=== PATIENT | female | born 1995 | race African-American/Black ===

== ENCOUNTER 2016-05-03 03:07 | Emergency (ER) | payer SELFPAY ==
[~2016-05-03] VITALS: Ht 162.6 cm; Wt 78.0 kg
[2016-05-03 03:15] VITALS: Ht 162.6 cm; Wt 78.0 kg
[2016-05-03] MEDS ORDERED: KETOROLAC TROMETHAMINE 30 MG/ML VIAL IV STA (03:57)
[2016-05-03] MEDS ORDERED: SODIUM CHLORIDE 0.9% 1000ML 1,000 ML IV STA (03:57)
[2016-05-03 04:25] VITALS: O2SAT 96
[2016-05-03 04:37] LABS: BASO % 0.1 %; BASO ABS # 0.01 K/uL (0-0.2); COMPLETE YES; IG% 0.3 %; LYMPH ABS # 1.25 K/uL (1.2-3.4); MEAN CELL VOLUME 78.8 fL (80-100); MEAN CORPUSCULAR HEMOGLOBIN 28.7 pg (25-34); MEAN CORPUSCULAR HGB CONC 36.4 g/dl (32-36); MEAN PLATELET VOLUME 9.7 fL (7.4-10.4); MONO % 9.4 %; NEUT % 71.2 %; PLATELET COUNT 274 K/uL (130-400); RED BLOOD COUNT 4.57 M/uL (4.2-5.4); WHITE BLOOD COUNT 7.37 K/uL (4.8-10.8)
[2016-05-03] MEDS ORDERED: PHEN-905 PO (04:41)
[2016-05-03] MEDS ORDERED: [UNRECOGNIZED DRUG - CODE] PO (04:41)
[2016-05-03 04:42] LABS: MANUAL MICROSCOPIC REQUIRED? NO; REVIEW REQ? NO; URINE APPEARANCE CLOUDY (CLEAR); URINE BILIRUBIN NEG (NEG); URINE COLOR DK YELLOW; URINE EPITHELIAL CELL AUTO >30 /lpf (0-5); URINE NITRITE NEG (NEG); URINE SPECIFIC GRAVITY 1.025 (1.000-1.030); UROBILINOGEN NEG (NEG); ZZUR CULT IF INDIC CLEAN CATCH YES
[2016-05-03 04:59] LABS: BUN/CREATININE RATIO 7.8 (10-20); CALCIUM 8.7 mg/dl (8.5-10.1); CREATININE 0.88 mg/dl (0.60-1.20)
[2016-05-03] MEDS ORDERED: ACETAMINOPHEN 325 MG TAB PO STA (05:59)
[2016-05-03 06:18] LABS: INFLUENZA A PCR Neg for Influ A (NEG); INFLUENZA B PCR Neg for Influ B (NEG)
--- NOTE | 2016-05-03 06:38 | DIAGNOSTIC IMAGING REPORT ---
CHEST ONE VIEW PORTABLE CLINICAL HISTORY: fever, cough COMPARISON STUDY: No previous studies for comparison. FINDINGS: The cardiac and mediastinal contours are normal. There is no evidence of focal pulmonary consolidation. There is no evidence of failure. No pleural effusions are visualized.[ IMPRESSION: No active disease in the chest. Electronically signed by: Gonzalo Johnston M.D. 05/03/2016 6:36 AM Dictated Date/Time: 05/03/2016 6:36 AM
[2016-05-03 06:58] VITALS: TEMP 37.3
--- NOTE | 2016-05-03 07:09 | EMERGENCY ROOM VISIT NOTE ---
History Report prepared by Kike: Qamar Dudley Under the Supervision of: Dr. Ivis Ibrahim M.D. First contact with patient: 03:49 Chief Complaint: FLU LIKE SX Stated Complaint: FEVER,FLU LIKE SYMPTOMS,SORE THROAT History of Present Illness The patient is a 21 year old female who presents to the Emergency Room with complaints of a persistent illness beginning yesterday. Her symptoms include a sore throat, cough, fevers and chills. She has taken NyQuil, DayQuil and Ibuprofen for her symptoms, but has seen minimal relief. The patient states that the medications improved her symptoms for about an hour before they returned. She did not have flu-shot this year. She has a history of rheumatoid arthritis and asthma. The patient denies any chance of . Source of History: patient Onset: Yesterday Quality: other (illness) Timing: other (persistent) Modifying Factors (Relieving): ibuprofen, other (NyQuil and DayQuil) Associated Symptoms: + chills, + cough, + fevers, + sorethroat Review of Systems See HPI for pertinent positives & negatives. A total of 10 systems reviewed and were otherwise negative. Past Medical & Surgical Medical Problems: (1) Asthma (2) Juvenile rheumatoid arthritis Family History No pertinent family history stated. Social History Smoking Status: Current Every Day Smoker Marital Status: single Housing Status: lives with family Occupation Status: [employer] student Current/Historical Medications Scheduled PRN Dextromethorphan-Phenylephrine (Day Time Multi-Symptom Co 10-5-325 mg/15Ml), 1 DOSE PO DIRECTED PRN for COLD SYMPTOMS Sibdydnovdztl-Zdtkytaoop-Zgsan (Nyquil Severe Cold/Flu 5-6.25-10-325 mg/15Ml), 1 DOSE PO DIRECTED PRN for COLD SYMPTOMS Allergies Coded Allergies: Pineapple (Verified Allergy, Severe, "SWELLING EVERYWHERE"-THROAT, FACE, ) Physical Exam Vital Signs Date Time Temp Pulse Resp B/P Pulse Ox O2 Delivery O2 Flow Rate FiO2 05/03/16 07:41 94 18 108/62 98 05/03/16 06:58 37.3 92 18 96 Room Air 05/03/16 06:10 103 18 107/75 100 Room Air 05/03/16 05:30 80 18 96 Room Air 05/03/16 05:04 38.0 05/03/16 04:31 95 05/03/16 04:25 96 Room Air 05/03/16 04:25 93 20 96 Room Air 05/03/16 04:24 91 16 115/82 100 Room Air 05/03/16 03:15 38.9 95 18 120/81 96 Room Air Physical Exam Vital signs reviewed. General: Well-appearing female, in no significant distress. Noted to be febrile. No meningeal signs HEENT: No scleral icterus, PERRLA, neck supple. Atraumatic. Cardiovascular: Regular rate and rhythm, no extra sounds. Pulmonary: Clear to auscultation bilaterally, normal work of breathing. Abdomen: Soft, nontender, nondistended, positive bowel sounds. Musculoskeletal: Atraumatic, no peripheral edema. Neurologic: Patient awake alert and oriented x 3, full strength in all 4 extremities. Cranial nerves 2 through 12 grossly intact. Skin: Warm, dry, no rash Medical Decision & Procedures ER Provider Diagnostic Interpretation: One View Chest X-ray interpreted by me: No focal lung consolidation. No failure. Laboratory Results 05/03/16 04:20 Red Blood Count 4.57, Mean Corpuscular Volume 78.8, Mean Corpuscular Hemoglobin 28.7, Mean Corpuscular Hemoglobin Concent 36.4, Mean Platelet Volume 9.7, Neutrophils (%) (Auto) 71.2, Lymphocytes (%) (Auto) 17.0, Monocytes (%) (Auto) 9.4, Eosinophils (%) (Auto) 2.0, Basophils (%) (Auto) 0.1, Neutrophils # (Auto) 5.25, Lymphocytes # (Auto) 1.25, Monocytes # (Auto) 0.69, Eosinophils # (Auto) 0.15, Basophils # (Auto) 0.01 05/03/16 04:20 Test 05/03/16 03:30 05/03/16 04:15 05/03/16 04:20 Urine Color DK YELLOW Urine Appearance CLOUDY (CLEAR) Urine pH 6.0 (4.5-7.5) Urine Specific [place] 1.025 (1.000-1.030) Urine Protein NEG (NEG) Urine Glucose (UA) NEG (NEG) Urine Ketones NEG (NEG) Urine Occult Blood 3+ (NEG) Urine Nitrite NEG (NEG) Urine Bilirubin NEG (NEG) Urine Urobilinogen NEG (NEG) Urine Leukocyte Esterase MODERATE (NEG) Urine WBC (Auto) 10-30 /hpf (0-5) Urine RBC (Auto) 0-4 /hpf (0-4) Urine Hyaline Casts (Auto) 1-5 /lpf (0-5) Urine Epithelial Cells (Auto) >30 /lpf (0-5) Urine Bacteria (Auto) 1+ (NEG) Influenza Type A (RT-PCR) Neg for Influ A (NEG) Influenza Type A Antigen Neg for Influ A (NEG) Influenza Type B Antigen Neg for Influ B (NEG) Influenza Type B (RT-PCR) Neg for Influ B (NEG) White Blood Count 7.37 K/uL (4.8-10.8) Red Blood Count 4.57 M/uL (4.2-5.4) Hemoglobin 13.1 g/dL (12.0-16.0) Hematocrit 36.0 % (37-47) Mean Corpuscular Volume 78.8 fL (80-100) Mean Corpuscular Hemoglobin 28.7 pg (25-34) Mean Corpuscular Hemoglobin Concent 36.4 g/dl (32-36) Platelet Count 274 K/uL (130-400) Mean Platelet Volume 9.7 fL (7.4-10.4) Neutrophils (%) (Auto) 71.2 % Lymphocytes (%) (Auto) 17.0 % Monocytes (%) (Auto) 9.4 % Eosinophils (%) (Auto) 2.0 % Basophils (%) (Auto) 0.1 % Neutrophils # (Auto) 5.25 K/uL (1.4-6.5) Lymphocytes # (Auto) 1.25 K/uL (1.2-3.4) Monocytes # (Auto) 0.69 K/uL (0.11-0.59) Eosinophils # (Auto) 0.15 K/uL (0-0.5) Basophils # (Auto) 0.01 K/uL (0-0.2) RDW Standard Deviation 43.2 fL (36.4-46.3) RDW Coefficient of Variation 15.1 % (11.5-14.5) Immature Granulocyte % (Auto) 0.3 % Immature Granulocyte # (Auto) 0.02 K/uL (0.00-0.02) Anion Gap 7.0 mmol/L (3-11) Est Creatinine Clear Calc Drug Dose 103.1 ml/min Estimated GFR () 109.6 Estimated GFR (Non- 94.6 BUN/Creatinine Ratio 7.8 (10-20) Calcium Level 8.7 mg/dl (8.5-10.1) Magnesium Level 2.0 mg/dl (1.8-2.4) Total Bilirubin 0.3 mg/dl (0.2-1) Direct Bilirubin 0.1 mg/dl (0-0.2) Aspartate Amino Transf (AST/SGOT) 15 U/L (15-37) Alanine Aminotransferase (ALT/SGPT) 28 U/L (12-78) Alkaline Phosphatase 97 U/L (45-117) Total Protein 7.6 gm/dl (6.4-8.2) Albumin 3.4 gm/dl (3.4-5.0) Laboratory results per my review. Medications Administered Medications (Trade) Dose Ordered Sig/Rajiv Route Start Time Stop Time Status Last Admin Dose Admin Sodium Chloride (Nss 1000ml) 1,000 ml @ 999 mls/hr Q1H1M STAT IV 05/03/16 03:57 05/03/16 04:57 DC 05/03/16 04:22 999 MLS/HR Ketorolac Tromethamine (Toradol Inj) 30 mg NOW STAT IV 05/03/16 03:57 05/03/16 04:00 DC 05/03/16 04:22 30 MG Acetaminophen (Tylenol Tab) 650 mg NOW STAT PO 05/03/16 05:59 05/03/16 06:00 DC 05/03/16 06:13 650 MG ED Course 0356: Past medical records reviewed. The patient was evaluated in room B4A. A complete history and physical examination was performed. 0357: Ordered Toradol Inj 30 mg IV, Sodium Chloride 1000 ml @ 999 mls/hr IV. 0559: Ordered Tylenol Tab 650 mg PO. 0705: Upon reevaluation, the patient appeared to have improvement of her symptoms. I discussed findings with her. The patient verbalized agreement of the treatment plan. She was discharged home. Medical Decision Differential diagnosis: Influenza, other viral illness, pneumonia, urinary tract infection, metabolic abnormality, medication effect, cellulitis, meningitis, intra-abdominal source. This patient was evaluated and appeared to be in no significant distress. IV access was obtained and laboratory work was drawn. 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 She was hydrated with normal saline solution, given IV Toradol and oral Tylenol. Patient's laboratory work is fairly unrevealing. Chest x-ray is clear. She was informed of the findings. I suspect she is suffering from a viral illness. The patient was discharged to follow-up with her primary care physician and return to the ER for worsening of symptoms or any medical concerns. Impression Primary Impression: Influenza-like symptoms Scribe Attestation The scribe's documentation has been prepared under my direction and personally reviewed by me in its entirety. I confirm that the note above accurately reflects all work, treatment, procedures, and medical decision making performed by me. Departure Information Dispostion Home / Self-Care Referrals [facility] (PCP) Forms HOME CARE DOCUMENTATION FORM, IMPORTANT VISIT INFORMATION Patient Instructions My [facility] Additional Instructions Diagnosis: Flulike symptoms Tylenol 650 mg every 6 hours as needed for pain or fever. Ibuprofen 600 mg every 6 hours as needed for pain or fever with food. Drink plenty of clear liquids. Follow-up with [facility] this week for reevaluation. Return to the ER for worsening of symptoms or any medical concerns.
[2016-05-03 07:41] VITALS: BP 108/62; PULSE 94; O2SAT 98
== END 2016-05-03 07:25 | disposition home or self-care (01) ==
LOC: C.EDB 03:08
DX: R50.9 Fever, unspecified (principal); J02.9 Acute pharyngitis, unspecified; R05 Cough; M08.00 Unspecified juvenile rheumatoid arthritis of unspecified site; J45.909 Unspecified asthma, uncomplicated; F17.200 Nicotine dependence, unspecified, uncomplicated

== ENCOUNTER 2017-01-15 22:43 | Emergency (ER) | payer OTHER ==
[~2017-01-15] VITALS: Ht 162.6 cm; Wt 78.2 kg
[~2017-01-15 22:43] MED LIST: PHEN-905 PO; [UNRECOGNIZED DRUG - CODE] PO
[2017-01-15 22:49] VITALS: TEMP 37; Ht 162.6 cm; Wt 78.2 kg
[2017-01-15] MEDS ORDERED: BENZOCAINE 20% (ORAJEL) 11.9 GM TUBE MT STA (22:55)
[2017-01-15] MEDS ORDERED: IBUPROFEN 600 MG TAB PO STA (22:55)
[2017-01-15] MEDS ORDERED: CLINDAMYCIN 150MG HOME PACK PO ONE (23:00)
[2017-01-15] MEDS ORDERED: OXYCODONE IR HOME PACK PO ONE (23:00)
[2017-01-15] MEDS ORDERED: CLIN150C PO (23:12)
[2017-01-15 23:18] VITALS: BP 121/73; PULSE 70; O2SAT 99
--- NOTE | 2017-01-15 23:27 | EMERGENCY ROOM VISIT NOTE ---
History First contact with patient: 22:53 Chief Complaint: DENTAL PAIN Stated Complaint: TOOTHACHE Nursing Triage Summary: Patient ambulatory to triage with an upright and steady gait, states "I broke my tooth about 2 weeks ago. It was fine. Now, I think it might be infected. I have a lot of pain in the right side of my head, face and neck." History of Present Illness The patient is a 21 year old female who presents to the Emergency Room with complaints of right lower dental pain for the past week who his tooth broke 2 weeks ago. Patient has a dentist back home in [place]. She goes home next week for Nathanael break. She states she'll follow up then. Pain currently 7 out of 10. Pain does not radiate. She describes it as throbbing. Worse with chewing and better with rest. She tried Motrin, Tylenol, Orajel without relief. Patient denies chest pain, dyspnea, fever, chills, facial swelling, dysphagia, cold symptoms. She is tolerating by mouth fluids and food. Review of Systems See HPI for pertinent positives & negatives. A total of 10 systems reviewed and were otherwise negative. Past Medical/Surgical History Medical Problems: (1) Asthma (2) Juvenile rheumatoid arthritis 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: [employer] student Current/Historical Medications Scheduled Clindamycin Hcl (Cleocin), 150 MG PO QID Physical Exam Vital Signs Date Time Temp Pulse Resp B/P (MAP) Pulse Ox O2 Delivery O2 Flow Rate FiO2 01/15/17 23:18 70 16 121/73 99 Room Air 01/15/17 22:49 37.0 75 18 114/75 99 Room Air Physical Exam VITALS: Vitals are noted on the nurse's note and reviewed by myself. Vital signs stable. GENERAL: Pleasant female, in no acute distress, nondiaphoretic, well-developed well-nourished. SKIN: The skin was without rashes, erythema, edema, or bruising. There is no tenting of the skin. Capillary reflex less than 2 seconds. HEAD: Normocephalic atraumatic. EARS: External auditory canals clear, tympanic membranes pearly hodges without erythema or effusion bilaterally. EYES: Pupils equal round and reactive to light and accommodation. Conjunctivae without injection, sclerae without icterus. Extraocular movements intact. NOSE: Patent, turbinates without inflammation or discharge. No sinus tenderness. MOUTH: Mucous membranes moist. Pharynx without erythema or exudate. Uvula midline. Airway patent. Tongue does not deviate. No Davion's angina Dental exam: Right lower second molar with extensive dental came no palpable abscess. Overall dental hygiene fair. NECK: Supple without nuchal rigidity. No lymphadenopathy. No thyromegaly. Cervical spine is nontender. No JVD. HEART: Regular rate and rhythm without murmurs gallops or rubs. LUNGS: Clear to auscultation bilaterally without wheezes, rales or rhonchi. No dullness to percussion. No retractions or accessory muscle use. ABDOMEN: Positive bowel sounds x 4. Normal tympanic percussion. Soft, nontender, without masses or organomegaly. Dunaway sign negative. No guarding or rebound tenderness. MUSCULOSKELETAL: No muscle atrophy, erythema, or edema noted. NEURO: Patient was alert and oriented to person place and time. Normal sensation to light and sharp touch. No focal neurological deficits. Medical Decision & Procedures Medications Administered Medications (Trade) Dose Ordered Sig/Rajiv Route Start Time Stop Time Status Last Admin Dose Admin Clindamycin HCl (Cleocin 150MG Home Pack) 1 homepack UD ONCE PO 01/15/17 23:00 01/15/17 23:01 DC 01/15/17 23:16 1 HOMEPACK Benzocaine (Orajel 20% Oral Gel) 1 appln NOW STAT MT 01/15/17 22:55 01/15/17 22:56 DC 01/15/17 23:15 1 APPLN Ibuprofen (Motrin Tab) 600 mg NOW STAT PO 01/15/17 22:55 01/15/17 22:56 DC 01/15/17 23:16 600 MG Oxycodone HCl (Roxicodone Immediate Rel 5MG Home Pack) 1 homepack UD ONCE PO 01/15/17 23:00 01/15/17 23:01 DC 01/15/17 23:16 1 HOMEPACK ED Course Prior records reviewed and summarized as above. Triage Nursing notes reviewed. The patient's history was concerning for dental pain. Differential diagnosis: Etiologies such as cellulitis, abscess, gingivitis, Davion angina, dental Rhoda, as well as others were entertained.. Physical examination: The physical examination was consistent with cellulitis ER treatment provided: Cleocin On reassessment the patient felt better. Diagnostics interpreted by me: Deferred This appears to be dental pain from dental caries. Patient had no palpable abscess. She is Proper Dental Hygiene. She Is Advised to Follow-Up with Her Dentist When She Returns Home or Here in the ER Sooner for Severe Pain, Fevers, Swelling, Worsening Signs or Symptoms or As Needed. Patient had No Signs of Airway Compromise or Davion's Angina. She Is Well-Appearing. By the evaluation outlined above emergent etiologies such as abscess, Davion angina, as well as others were deemed relatively unlikely. The pt informed about the findings as listed above. All questions were answered and pleased with the treatment. Return instructions were outlined and the patient was discharged in stable condition. Outpatient prescription management: Cleocin Referral: The patient was referred back to dentist for follow-up in 2 to 3 days for a recheck of the current condition. Medical Decision As above Medication Reconcilliation Current Medication List: was personally reviewed by me Blood Pressure Screening Patient's blood pressure: Normal blood pressure Impression Primary Impression: Dental caries Additional Impression: Tooth pain with chewing Departure Information Dispostion Home / Self-Care Condition GOOD Prescriptions Clindamycin Hcl (CLEOCIN) 150 Mg Cap 150 MG PO QID for 9 Days, #36 CAP Prov: Gabby Ernst ., [place] 01/15/17 Referrals No Doctor, Assigned Forms HOME CARE DOCUMENTATION FORM, IMPORTANT VISIT INFORMATION Patient Instructions [facility], ED [facility] Additional Instructions Clindamycin 150mg: Take one pill 4 times daily for 10 days for your infection. Take with food, but avoid dairy. Avoid prolonged sun exposure since this medication makes you temporarily more susceptible to sunburns. All antibiotics can cause diarrhea. If this occurs and you feel worse or it does not resolve in 1-2 days follow up with your doctor or return to the Emergency Department as this could be signs of serious underlying problems. Any medication can cause an allergic reaction, stop the pills immediately and return to the ER for rash, hives, breathing difficulties, or swelling. Oxycodone (OxyIR) 5mg: Take 1-2 pills every four hours for breakthrough pain. Avoid alcohol, operating machinery or dangerous equipment, working on ladders or roofs, DRIVING, or situations where being under the influence may be dangerous. It is recommended to use an [id number] stool softener such as Colace, 100mg twice daily while taking this medication to avoid constipation. Ibuprofen(Motrin, Advil) may be used for fever or pain. Use 600mg every six hours as needed. Take with food. Avoid using more than 2400mg in a 24 hour period. Do not use 2400mg per day for more than three consecutive days without physician direction. Prolonged inappropriate use can lead to stomach upset or ulcers. This medication can be taken if you need to drive, work, or perform activities which may be dangerous when taking narcotic pain medication. (AND/OR) Acetaminophen(Tylenol) may be used for fever or pain. Use 1000mg every six hours as needed. Avoid using more than 3000mg in a 24 hour period. This medication can be taken if you need to drive, work, or perform activities which may be dangerous when taking narcotic pain medication. [place] teeth twice a day, floss daily and do warm saltwater gargles 3 times a day. See a dentist as soon as possible for definitive care for your dental problem. Return to ER sooner for facial swelling, fever, redness, worsening signs or symptoms or as needed. Problem Qualifiers
== END 2017-01-15 23:20 | disposition home or self-care (01) ==
LOC: C.EDB 22:44
DX: K02.9 Dental caries, unspecified (principal); K08.89 Other specified disorders of teeth and supporting structures; J45.909 Unspecified asthma, uncomplicated

== ENCOUNTER 2017-03-14 16:55 | Inpatient (IN) | payer OTHER ==
[~2017-03-14] VITALS: Ht 160 cm; Wt 78.4 kg
[2017-03-14] MEDS ORDERED: VENL75CA PO (17:33)
[2017-03-14] MEDS ORDERED: STOMACH MEDS (17:34)
[2017-03-14 18:41] LABS: BASO % 0.1 %; BASO ABS # 0.01 K/uL (0-0.2); EOS % 1.9 %; EOS ABS # 0.14 K/uL (0-0.5); HEMATOCRIT 35.7 % (37-47); IG# 0.01 K/uL (0.00-0.02); LYMPH % 37.2 %; LYMPH ABS # 2.74 K/uL (1.2-3.4); MEAN CELL VOLUME 81.1 fL (80-100); MEAN CORPUSCULAR HEMOGLOBIN 29.5 pg (25-34); MEAN CORPUSCULAR HGB CONC 36.4 g/dl (32-36); MEAN PLATELET VOLUME 9.4 fL (7.4-10.4); MONO % 4.8 %; MONO ABS # 0.35 K/uL (0.11-0.59); NEUT % 55.9 %; NEUT ABS # 4.11 K/uL (1.4-6.5); PLATELET COUNT 262 K/uL (130-400); RED CELL DISTRIBUTION WIDTH CV 14.8 % (11.5-14.5); RED CELL DISTRIBUTION WIDTH SD 43.7 fL (36.4-46.3); WHITE BLOOD COUNT 7.36 K/uL (4.8-10.8)
[2017-03-14 19:01] LABS: ALBUMIN 3.2 gm/dl (3.4-5.0); CALCIUM 8.9 mg/dl (8.5-10.1); CREATININE 0.82 mg/dl (0.60-1.20); POTASSIUM 3.8 mmol/L (3.5-5.1)
[2017-03-14 19:11] LABS: TOTAL PROTEIN 7.3 gm/dl (6.4-8.2)
--- NOTE | 2017-03-14 20:19 | EMERGENCY ROOM VISIT NOTE ---
History Report prepared by Kike: Qamar Dudley Under the Supervision of: Dr. Jovanni Vargas D.O. First contact with patient: 17:18 Chief Complaint: MENTAL HEALTH EVALUATION Stated Complaint: MENTAL HEALTH EVAL History of Present Illness The patient is a 22 year old female who presents to the Emergency Room with complaints of intermittent suicidal ideation beginning last week. She has a history of depression (on Effexor XR). The patient was referred to the ED by [facility] today. She was referred because her counselor "did not feel safe letting me go home". She notes that she was also seen by [facility] four days ago. The patient states that she took two doses of NyQuil a few nights ago, followed by four additional doses to "try to forget about everything and sleep". She states that this was not an attempt to harm herself, but her counselor felt that it may have been. She states that she has had a vague plan to kill herself by slitting her wrist this week. The patient has not felt actively suicidal since four days ago. She attempted suicide once in the past four years ago. She denies hallucinations. The patient notes that she had a recent [place] procedure from which she is still having pain. She denies any chest pain, headache, abdominal pain or back pain. Source of History: patient Onset: Last week Quality: other (suicidal ideation) Timing: intermittent Associated Symptoms: No headache, No chest pain, No abdominal pain, No back pain Review of Systems See HPI for pertinent positives & negatives. A total of 10 systems reviewed and were otherwise negative. Past Medical & Surgical Medical Problems: (1) Asthma (2) Juvenile rheumatoid arthritis Family History No pertinent family history stated. 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 OROPHARYNX: no exudate, no erythema, lips, buccal mucosa, and tongue normal and mucous membranes are moist NECK: supple, no nuchal rigidity, no adenopathy, non-tender LUNGS: Clear to auscultation. Normal chest wall mechanics HEART: no murmurs, S1 normal and S2 normal ABDOMEN: abdomen soft, non-tender, normo-active bowel sounds, no masses, no rebound or guarding. BACK: Back is symmetrical on inspection and there is no deformity, no midline tenderness, no CVA tenderness. SKIN: no rashes and no bruising UPPER EXTREMITIES: upper extremities are grossly normal. LOWER EXTREMITIES: No pitting edema. NEURO EXAM: Normal sensorium, cranial nerves II-XII grossly intact, normal speech, no gross weakness of arms, no gross weakness of legs. PSYCH: Admits to suicidal thoughts with a plan to cut her wrist. Medical Decision & Procedures Laboratory Results 03/14/17 18:26 Red Blood Count 4.40, Mean Corpuscular Volume 81.1, Mean Corpuscular Hemoglobin 29.5, Mean Corpuscular Hemoglobin Concent 36.4, Mean Platelet Volume 9.4, Neutrophils (%) (Auto) 55.9, Lymphocytes (%) (Auto) 37.2, Monocytes (%) (Auto) 4.8, Eosinophils (%) (Auto) 1.9, Basophils (%) (Auto) 0.1, Neutrophils # (Auto) 4.11, Lymphocytes # (Auto) 2.74, Monocytes # (Auto) 0.35, Eosinophils # (Auto) 0.14, Basophils # (Auto) 0.01 03/14/17 18:26 Test 03/14/17 18:26 03/14/17 20:12 White Blood Count 7.36 K/uL (4.8-10.8) Red Blood Count 4.40 M/uL (4.2-5.4) Hemoglobin 13.0 g/dL (12.0-16.0) Hematocrit 35.7 % (37-47) Mean Corpuscular Volume 81.1 fL (80-100) Mean Corpuscular Hemoglobin 29.5 pg (25-34) Mean Corpuscular Hemoglobin Concent 36.4 g/dl (32-36) Platelet Count 262 K/uL (130-400) Mean Platelet Volume 9.4 fL (7.4-10.4) Neutrophils (%) (Auto) 55.9 % Lymphocytes (%) (Auto) 37.2 % Monocytes (%) (Auto) 4.8 % Eosinophils (%) (Auto) 1.9 % Basophils (%) (Auto) 0.1 % Neutrophils # (Auto) 4.11 K/uL (1.4-6.5) Lymphocytes # (Auto) 2.74 K/uL (1.2-3.4) Monocytes # (Auto) 0.35 K/uL (0.11-0.59) Eosinophils # (Auto) 0.14 K/uL (0-0.5) Basophils # (Auto) 0.01 K/uL (0-0.2) RDW Standard Deviation 43.7 fL (36.4-46.3) RDW Coefficient of Variation 14.8 % (11.5-14.5) Immature Granulocyte % (Auto) 0.1 % Immature Granulocyte # (Auto) 0.01 K/uL (0.00-0.02) Anion Gap 7.0 mmol/L (3-11) Est Creatinine Clear Calc Drug Dose 107.6 ml/min Estimated GFR () 118.6 Estimated GFR (Non- 102.3 BUN/Creatinine Ratio 10.9 (10-20) Calcium Level 8.9 mg/dl (8.5-10.1) Total Bilirubin 0.4 mg/dl (0.2-1) Direct Bilirubin 0.1 mg/dl (0-0.2) Aspartate Amino Transf (AST/SGOT) 12 U/L (15-37) Alanine Aminotransferase (ALT/SGPT) 21 U/L (12-78) Alkaline Phosphatase 89 U/L (45-117) Total Protein 7.3 gm/dl (6.4-8.2) Albumin 3.2 gm/dl (3.4-5.0) Thyroid Stimulating Hormone (TSH) 0.383 uIu/ml (0.300-4.500) Ethyl Alcohol mg/dL < 3.0 mg/dl (0-3) Urine Color ORANGE Urine Appearance CLOUDY (CLEAR) Urine pH 7.0 (4.5-7.5) Urine Specific [place] 1.010 (1.000-1.030) Urine Protein NEG (NEG) Urine Glucose (UA) NEG (NEG) Urine Ketones NEG (NEG) Urine Occult Blood 3+ (NEG) Urine Nitrite NEG (NEG) Urine Bilirubin NEG (NEG) Urine Urobilinogen NEG (NEG) Urine Leukocyte Esterase TRACE (NEG) Urine RBC >30 /hpf (0-4) Urine WBC 10-30 /hpf (0-5) Urine Epithelial Cells >30 /lpf (0-5) Urine Bacteria 1+ (NEG) Urine Test NEG (NEG) Urine Opiates Screen NEG (NEG) Urine Methadone, Qualitative NEG (NEG) Urine Barbiturates NEG (NEG) Urine Phencyclidine (PCP) Level NEG (NEG) Ur Amphetamine/Methamphetamine NEG (NEG) MDMA (Ecstasy) Screen NEG (NEG) Urine Benzodiazepines Screen NEG (NEG) Urine Cocaine Metabolite NEG (NEG) Urine Marijuana (THC) POS (NEG) Laboratory results per my review. ED Course ED COURSE: Vital signs were reviewed and appeared normal. The patients medical record was reviewed The above diagnostic studies were performed and reviewed. ED treatments and interventions as stated above. 1720: The patient was evaluated in room A8. A complete history and physical examination was performed. 1950: I spoke with the employment evaluator/case manager. The patient is willing to come in to the hospital for voluntary treatment. 2005: Upon reevaluation, the patient is resting. I discussed my findings with the patient and she understands and agrees with the treatment plan. Based on the patients age, coexisting illnesses, exam and lab findings the decision to treat as an inpatient was made. The patient remained stable while under my care. The patient will be evaluated for further management by [facility]. Medical Decision Differential diagnosis: Etiologies such as mood disorder, infection, hypoglycemia, electrolyte abnormalities, cardiac sources, intracerebral event, toxicologic, neurologic, as well as others were entertained. Patient is a 22-year-old female who presents to ER for mood disorder with suicidal thoughts. CBC all BMP, LFTs, bilirubin and TSH was unremarkable. All negative. Marijuana was positive. UA was contaminated. negative. Patient was updated bedside. She is evaluated by [facility]. Patient was admitted with a mood disorder and suicidal thoughts. Medication Reconcilliation Current Medication List: was personally reviewed by me Blood Pressure Screening Patient's blood pressure: Normal blood pressure Blood pressure disposition: Did not require urgent referral Impression Primary Impression: Suicidal thoughts Scribe Attestation The scribe's documentation has been prepared under my direction and personally reviewed by me in its entirety. I confirm that the note above accurately reflects all work, treatment, procedures, and medical decision making performed by me. Departure Information Dispostion [facility] Referrals No Doctor, Assigned (PCP) Forms HOME CARE DOCUMENTATION FORM, IMPORTANT VISIT INFORMATION Patient Instructions [facility]
[2017-03-14 20:59] VITALS: O2SAT 99
[2017-03-14] MEDS ORDERED: NURSING VERBAL MED ORDER ONE (22:00)
[2017-03-14] MEDS ORDERED: SODIUM CHLORIDE 0.65% NA SOLN 45 ML (OCEAN) PRN (22:15)
[2017-03-14] MEDS ORDERED: BISMUTH SUBSALICYLATE PER ML OMNICELL CHARGE PO PRN (22:15)
[2017-03-14] MEDS ORDERED: ACETAMINOPHEN 325 MG TAB PO PRN (22:15)
[2017-03-14] MEDS ORDERED: hydrOXYzine HCL 25 MG TAB PO PRN (22:15)
[2017-03-14] MEDS ORDERED: ALUMINUM/MAGNESIUM SUSP 30 ML UDC PO PRN (22:15)
[2017-03-14] MEDS ORDERED: MAGNESIUM HYDROXIDE SUSP 30 ML UDC PO PRN (22:15)
[2017-03-14] MEDS: hydrOXYzine HCL 25 MG TAB PO PRN (23:05)
[2017-03-15 00:06] VITALS: BP 112/72; PULSE 72; TEMP 37.2; Ht 160 cm; Wt 78.4 kg
[2017-03-15 06:57] VITALS: BP_SYST 108; BP_SYST 96; BP_DIAS 61; BP_DIAS 75; PULSE 65; TEMP 36.9
[2017-03-15] MEDS: VENLAFAXINE HCL XR 75 MG CAPXR PO SCH (10:05)
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
[2017-03-15] MEDS: hydrOXYzine HCL 25 MG TAB PO PRN (23:51)
[2017-03-16] MEDS: hydrOXYzine HCL 25 MG TAB PO PRN ×3 (00:44→22:57)
[2017-03-16 06:56] VITALS: BP_SYST 93; BP_SYST 97; BP_DIAS 62; BP_DIAS 64; PULSE 61; PULSE 82; TEMP 36.8
[2017-03-16] MEDS: VENLAFAXINE HCL XR 75 MG CAPXR PO SCH (09:18)
--- NOTE | 2017-03-16 10:45 | Psychiatric Progress Notes ---
Progress Note Date of Service Mar 16, 2017. 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 She was brought in by police, and there is a back up 302 petitioning statement. Chief Complaint "I have 3 goals...wait, can I make that 4?". Subjective Patient was seen & assessed interval progress reviewed with Nursing. Staff reports pt remains flat and guarded. They state patient relocated to the safe room last evening as she was not able to sleep. Pt was seen today to assess progress since admission. She was observed while in bed in the safe room. Pt states she was awoken by her roommate several times during the night and requested permission to sleep elsewhere. Pt states she has not eaten breakfast or gotten out of bed stating, "I don't know why I just can't wake up". She states she has 3 treatment goals, "1. improving sleep; 2. improving mood swings ; 3. working on communicating with people about things". We discussed sleep hygiene at length and patient states she would be agreeable to work on a set sleep/wake schedule. Based on her classes, she usually wakes around 9:30-10: 00. We discussed using community meeting at 9:30 as a wake up time while on the unit to push her to get out of bed. Pt states she is willing for an increase in her antidepressant and says this is something she was planning on discussing with her outpatient provider. She states she would like to be discharged today to allow her to discuss medications as an outpatient. Pt was informed of the criteria to consider discharge and was told that she would not be discharged today. She requests adding a 4th goal stating, "I want to make sure I'm not here past tomorrow, though leaving today would be ideal." Pt was informed that cooperation with staff and providers as well as participation in groups would allow us to determine her readiness for discharge. Pt requested to know the end time of her 72 hours and was frustrated when she was informed that she had not signed a notice. We discussed the process for a 72-hour notice along with her voluntary treatment and expectations to participation in treatment under that commitment. Pt continues to be set on discharge today despite being informed of the unlikelihood of that. She denies SI at this encounter and was requested to inform us of any concerns or needs. She denies any at this time. Review of Systems Psych: denies symptoms other than stated above Constitutional: reports mild headache Cardiovascular: denied GI: denied Neurologic: denied Remainder of 10 body systems also reviewed and denied other than noted above. Sleep Information Total Hours of Sleep: 6.25 Meal Information Percent of Breakfast Consumed: 0 Percent of Lunch Consumed: 0 Percent of Dinner Consumed: 0 Mental Status Exam During interview pt is: alert and oriented, uncooperative (participates during the encounter with initially reasonable goals, but continues to suggest immediate discharge) Appearance: disheveled (awoken to participate in interview) Eye contact is: fair Motor behavior is: steady gait & station, no abnormal motor movements Speech: normal in rate, rhythm & volume Affect: mood congruent, depressed, irritable (about unlikelihood of discharge) Mood is: depressed, irritable Thought process: goal directed, clear, coherent Thought content: reality based without delusions Suicidal thought are: denied (at today's encounter), Plan: present, Intent: denied Homicidal thoughts are: denied Hallucinations: denies auditory, denies visual Cognition: memory grossly intact, attention grossly intact, language grossly intact Intelligence estimated to be: average Insight: impaired Judgement: impaired Impression Ongoing frustration about admission and unlikelihood of discharge. Pt initially reports attainable goals and appears willing to discuss treatment, but becomes uncooperative when she is informed that discharge tomorrow is very unlikely. She states she would like to work on improving sleep and mood. She also would appreciate help with communicating her needs. We had a productive discussion about sleep hygiene and pt was agreeable to working on a set sleep/ wake schedule and forcing herself to get out of bed at a particular time. We discussed using Community Meeting reminder around 9:30 as a good opportunity to force herself out of bed to attend group and then shower and engage in activities thereafter. Pt seemed agreeable to this. Pt is willing for increase in Effexor. Will given one time additional dose of 37.5mg today to assess tolerability and plan on increase to 150mg tomorrow morning. Risks, benefits, and side effects were discussed. Pt was agreeable to this plan. We discussed that engaging in treatment and group programming would be the best way to show to staff that she is improving with treatment and allows us to assess timing of discharge better. She remains frustrated about this, and after discussing a potential 72-hour notice she decides, "I don't even want to be here that long, so I probably won't sign it". Will continue to encourage participation in group programming and engagement with her treatment to assess readiness for discharge. Pt requires inpatient mental health treatment at this time due to the risk of self-harm or suicide if discharged prematurely. Plan (1) Depression 03/15 - Consider increase in venlafaxine, but patient unwilling to consider this today and is focused on wanting immediate discharge. Will continue 75 mg every morning, and advised her to take it in the morning and not at bedtime as she had been doing, as it may interfere with sleep. - Hydroxyzine as needed for sleep. - Coordinate with therapist at [facility] and PCP at [facility]. Recommended she see a psychiatrist, which she did not agree to do. - Recommend family meeting with mother by phone and/or friends. - Q 5 min checks for safety, encourage group attendance and participation, and work on healthy coping skills and discharge safety plan. 03/16 - Pt agreeable to increase in Effexor. We discussed target dose of 150mg and she agreed to a one-time additional dose of 37.5mg today with the 150mg dose starting tomorrow morning. - Continue Hydroxyzine for sleep as needed. Encourage appropriate sleep hygiene. Focus currently is on a structured wake-time for her to get out of bed. She feels 9:30 would be appropriate. - Coordinate aftercare. She states she is agreeable to psychiatry and therapy. - Encourage meeting with mother or other identified supports. - Continue to encourage participation in group programming as part of her treatment plan. (2) Cannabis abuse Smoking pot daily x 4-5 years. Does not feel it is a problem, but wants to stop temporarily in order to get a new job. Brief intervention performed and psychoeducation provided regarding risks of ongoing substance use, and recommendations to abstain while attempting to treat depression. Will refer back to PCP and [facility] for ongoing treatment. Discharge / Aftercare Planning Primary Care Physician: Name: did not state Therapist: Name: did not state Date of Appointment: Mar 15, 2017 Collections Manager: Name: 0 Visit Code E&M Code: 66413 Inventory Assets Strengths: Intelligence, supportive family Needs: address school stress, treat depression Risk Factors Assessment : No /single/: Yes Higher / Fall in social status: No Health problems: Yes Mental Health Diagnoses: Yes Substance use disorders: Yes Previous attempt: Yes Previous attempt;highly lethal: Yes Previous psychiatric stay: No Smoker: No Protective Factors Assessment : No Responsible for young children: No Employed: No Stable relationships: No Supportive family: Yes Good rapport with provider: Yes Data Vital Signs Last 24 Hrs: Date Time Temp Pulse Resp B/P (MAP) Pulse Ox O2 Delivery O2 Flow Rate FiO2 03/16/17 06:56 36.8 61 16 97/64 82 93/62 Meds Administered Last 24 Hrs: Meds Administered (Past 24Hrs) Medications (Trade) Dose Ordered Sig/Rajiv Route Start Time Stop Time Status Last Admin Dose Admin Hydroxyzine HCl (Vistaril Tab) 50 mg HSZ PRN PO 03/14/17 22:15 04/13/17 22:14 03/16/17 00:44 50 MG Venlafaxine HCl (effeXOR EXTENDED REL CAP) 75 mg QAM PO 03/15/17 09:00 04/14/17 08:59 03/16/17 09:18 75 MG Problem Qualifiers (1) Depression: Depression Type: major depressive disorder Major depression recurrence: recurrent Active/Remission status: currently active Major depression episode severity: severe Psychotic features: without psychotic features Qualified Codes: F33.2 - Major depressive disorder, recurrent severe without psychotic features
[2017-03-16] MEDS ORDERED: VENLAFAXINE HCL XR 37.5 MG CAPXR PO ONE (11:00)
[2017-03-16] MEDS ORDERED: BENZOCAINE 20% (ORAJEL) 11.9 GM TUBE MT PRN (16:00)
[2017-03-16] MEDS ORDERED: NURSING VERBAL MED ORDER ONE (16:00)
[2017-03-16] MEDS ORDERED: IBUPROFEN 600 MG TAB PO PRN (16:00)
[2017-03-17 07:12] VITALS: BP_SYST 100; BP_SYST 98; BP_DIAS 63; BP_DIAS 65; PULSE 58; PULSE 82; TEMP 36.9
[2017-03-17] MEDS: VENLAFAXINE HCL XR 75 MG CAPXR PO SCH (09:05)
--- NOTE | 2017-03-17 11:24 | Psych Management Progress Note ---
Psychiatry Miscellaneous Date of Service: Mar 17, 2017. Patient seen, MS assessed briefly as patient tired in bed and unwilling to attend community meeting. Encouraged cooperation with care and treatment plan as outlined by allied health prescriber.
--- NOTE | 2017-03-17 12:11 | Psychiatric Progress Notes ---
Progress Note Date of Service Mar 17, 2017. 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 She was brought in by police, and there is a back up 302 petitioning statement. Chief Complaint "I'm mad. It's just like a longterm here". Subjective Patient was seen & assessed interval progress reviewed with Treatment Team. Staff reports that the patient slept through the night with prn Vistaril 50mg x2 doses. Pt complained of tooth/gum pain yesterday evening and received order for medication to assist with these symptoms. Pt was seen today to assess progress since admission. Pt states she is very upset about her estimated length of stay. She signed a 72-hour notice which is up on 03/19, but she is frustrated that she may have to be here that long. Pt reports multiple reasons she is requesting premature discharge including her car currently being on campus and the amount of schoolwork she will need to make up. Pt states she has been "hyper and happy" with increased medications. Hyperactivity was then discussed as patient's outpatient provider has reported concern for bipolar symptoms including: speeding, decreased sleep, and an episode of shoplifting. Pt was educated on symptoms of bipolar disorder, which she denied. Pt was then educated on the concern for using antidepressants along in a bipolar presentation. Despite efforts, patient appeared to frustrated to adequately participate in this discussion at this time. Pt continues to state that her hospitalization is "making me worse", "I have no way to contact my professors", and that "it's just like a longterm here". Pt made threats to call a clamp operator if she was not allowed to leave after the meeting with her friend this afternoon. We reviewed the patient's goals from yesterday to assess progress made in regard to her concerns about sleep, mood, and communicating her feelings. She was unable at this time to meaningfully participate in an evaluation of those goals. Pt becomes more frustrated and tearful when asked if there was any other support that could be offered to her during her stay, and then states, " Do I have to stay here [exam room] I want to be done talking". Review of Systems Psych: denies symptoms other than stated above Constitutional: denied Cardiovascular: denied GI: denied Neurologic: denied Remainder of 10 body systems also reviewed and denied other than noted above. Sleep Information Total Hours of Sleep: 6.75 Meal Information Percent of Breakfast Consumed: 100 Percent of Lunch Consumed: 50 Percent of Dinner Consumed: 100 Mental Status Exam During interview pt is: alert and oriented, uncooperative (frustrated with estimated length of stay), guarded Appearance: appropriately dressed (in casual clothing) Eye contact is: poor Motor behavior is: steady gait & station, no abnormal motor movements Speech: normal in rate, rhythm & volume Affect: mood congruent, depressed, tearful, irritable (about discharge discussions) Mood is: depressed, irritable Thought process: goal directed, clear, coherent Thought content: reality based without delusions Suicidal thought are: denied, Plan: present (previous plan to cut wrists), Intent: denied Homicidal thoughts are: denied Hallucinations: denies auditory, denies visual Cognition: memory grossly intact, attention grossly intact, language grossly intact Intelligence estimated to be: average Insight: impaired Judgement: impaired Impression Pt continues to exhibit frustration about not being discharged today. She only minimally participates during the interview and is frequently requesting to leave. Pt is requesting discharge today as she feels is "better today" and that she has school work that "you are keeping me from". Pt is frustrated and tearful upon hearing that she would not be discharged today. Pt was only recently agreeable to engaging in treatment here on the unit. Pt has multiple ongoing risk factors including occasional SI, a potential overdose on Nyquil, unstable depressive symptoms, and a question of bipolar disorder as reported by her outpatient records which we have not had the ability to evaluate today due to the patient's level of frustration and inability to remain engaged for the full length of the encounter. Pt has submitted a 72-hour notice which is up on 03/19; however, she is planning to leave before that time. Pt has talked to multiple staff members about her disappointment and has threatened to call a clamp operator "if you won't let me leave after my meeting today". Will continue to encourage participation in group programming and engagement with her treatment to assess readiness for discharge. There is safety concern with premature discharge as we have been unable to further assess her proper diagnosis, and participation in mitigating risk factors has been limited. Pt requires inpatient mental health treatment at this time due to the risk of self-harm or suicide if discharged prematurely. Plan (1) Depression 03/15 - Consider increase in venlafaxine, but patient unwilling to consider this today and is focused on wanting immediate discharge. Will continue 75 mg every morning, and advised her to take it in the morning and not at bedtime as she had been doing, as it may interfere with sleep. - Hydroxyzine as needed for sleep. - Coordinate with therapist at [facility] and PCP at [facility]. Recommended she see a psychiatrist, which she did not agree to do. - Recommend family meeting with mother by phone and/or friends. - Q 5 min checks for safety, encourage group attendance and participation, and work on healthy coping skills and discharge safety plan. 03/16 - Pt agreeable to increase in Effexor. We discussed target dose of 150mg and she agreed to a one-time additional dose of 37.5mg today with the 150mg dose starting tomorrow morning. - Continue Hydroxyzine for sleep as needed. Encourage appropriate sleep hygiene. Focus currently is on a structured wake-time for her to get out of bed. She feels 9:30 would be appropriate. - Coordinate aftercare. She states she is agreeable to psychiatry and therapy. - Encourage meeting with mother or other identified supports. - Continue to encourage participation in group programming as part of her treatment plan. 03/17 - Continue medications as above. - Encourage good sleep hygiene, continued prn hydroxyzine if necessary. - Continue to encourage participation in group programming. (2) Cannabis abuse Smoking pot daily x 4-5 years. Does not feel it is a problem, but wants to stop temporarily in order to get a new job. Brief intervention performed and psychoeducation provided regarding risks of ongoing substance use, and recommendations to abstain while attempting to treat depression. Will refer back to PCP and [facility] for ongoing treatment. Discharge / Aftercare Planning Primary Care Physician: Name: [facility], Dr. Sargent Therapist: Name: CHET Laureano Date of Appointment: Mar 15, 2017 Lawn Care Professional: Name: 0 Visit Code E&M Code: 21663 Inventory Assets Strengths: Intelligence, supportive family Needs: address school stress, treat depression Risk Factors Assessment : No /single/: Yes Higher / Fall in social status: No Health problems: Yes Mental Health Diagnoses: Yes Substance use disorders: Yes Previous attempt: Yes Previous attempt;highly lethal: Yes Previous psychiatric stay: No Smoker: No Protective Factors Assessment : No Responsible for young children: No Employed: No Stable relationships: No Supportive family: Yes Good rapport with provider: Yes Data Vital Signs Last 24 Hrs: Date Time Temp Pulse Resp B/P (MAP) Pulse Ox O2 Delivery O2 Flow Rate FiO2 03/17/17 07:12 36.9 58 16 100/65 82 98/63 Meds Administered Last 24 Hrs: Meds Administered (Past 24Hrs) Medications (Trade) Dose Ordered Sig/Rajiv Route Start Time Stop Time Status Last Admin Dose Admin Venlafaxine HCl (effeXOR EXTENDED REL CAP) 150 mg QAM PO 03/17/17 09:00 04/14/17 08:59 03/17/17 09:05 150 MG Venlafaxine HCl (effeXOR EXTENDED REL CAP) 37.5 mg TODAY@1100 ONCE PO 03/16/17 11:00 03/16/17 11:01 DC 03/16/17 11:11 37.5 MG Ibuprofen (Motrin Tab) 600 mg QID PRN PO 03/16/17 16:00 04/15/17 15:59 03/16/17 18:09 600 MG Benzocaine (Orajel 20% Oral Gel) 1 appln QID PRN MT 03/16/17 16:00 04/15/17 15:59 03/16/17 18:09 1 APPLN Problem Qualifiers (1) Depression: Depression Type: major depressive disorder Major depression recurrence: recurrent Active/Remission status: currently active Major depression episode severity: severe Psychotic features: without psychotic features Qualified Codes: F33.2 - Major depressive disorder, recurrent severe without psychotic features
[2017-03-17] MEDS ORDERED: NURSING VERBAL MED ORDER ONE (19:30)
[2017-03-17] MEDS ORDERED: ONDANSETRON 4MG OD TAB PO PRN (19:45)
[2017-03-18] MEDS: hydrOXYzine HCL 25 MG TAB PO PRN ×2 (00:06→00:36)
[2017-03-18 06:48] VITALS: BP_SYST 96; BP_SYST 97; BP_DIAS 61; BP_DIAS 62; PULSE 77; PULSE 89; TEMP 37
[2017-03-18] MEDS: VENLAFAXINE HCL XR 75 MG CAPXR PO SCH (08:04)
[2017-03-18] MEDS ORDERED: EFFSR75 PO (09:54)
[2017-03-18] MEDS ORDERED: ATR25 PO (09:54)
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
== END 2017-03-18 11:16 | disposition home or self-care (01) | DRG 885 ==
LOC: C.EDB 16:57 → C.MHU 21:55 → ENRESERV 22:12 → C.MHU 03-16 14:02
PROVIDERS: ADMIT Psychiatry & Neurology Psychiatry; ATTEND Psychiatry & Neurology Psychiatry
DX: F33.2 Major depressive disorder, recurrent severe without psychotic features (principal); R45.851 Suicidal ideations; F12.10 Cannabis abuse, uncomplicated; Z91.5 Personal history of self-harm; Z91.410 Personal history of adult physical and sexual abuse; Z79.899 Other long term (current) drug therapy; Z91.018 Allergy to other foods